=== PATIENT | male | born 1995 | race Caucasian/White ===

== ENCOUNTER 2019-06-09 00:48 | Emergency (ER) | payer OTHER ==
[~2019-06-09] VITALS: Ht 198.1 cm; Wt 95.6 kg
[2019-06-09 02:24] VITALS: BP 131/74
== END 2019-06-09 02:26 | disposition home or self-care (01) ==
LOC: ED 01:33
DX: L20.84 Intrinsic (allergic) eczema (principal)
CPT/HCPCS: 99283; Q0163